=== PATIENT | female | born 1945 | race Two or more races ===

== ENCOUNTER → 2024-11-14 | Outpatient (CLI) | payer MEDICARE, OTHER, SELFPAY ==
--- NOTE | 2024-11-14 14:20 | XR_ITS ---
Examination: Bone densitometry Date and time of exam:November 14, 2024 1442 hours INDICATIONS: Hysterectomy age 45 postmenopausal ankle fracture, personal history osteoporosis Technique: Lumbar spine and hip total bone mineralization values of an calculated. Peak reference and age match control results have been displayed. Findings: Lumbar spine total bone mineralization is0.630 gm/cm2. This is 3.8 standard deviations below peak reference. This is 1.2 standard deviations below age-matched controls. Hip total bone mineralization is 0.257 gm/cm2 This is 5.3 standard deviations below peak reference. This is 3.3 standard deviations below age-matched controls Impression: There is osteoporosis based on lumbar spine measurements. There is osteoporosis based on hip measurements Lumbar mineralization is decreased 12.1% compared with June 03, 2014 Hip mineralization is decreased 46.7% compared with June 03, 2014
== END | disposition home or self-care (01) ==
PROVIDERS: PCP Family Medicine; Referring Provider Family Medicine; Visit Provider Family Medicine
DX: M81.0 Age-related osteoporosis without current pathological fracture (principal)
CPT/HCPCS: 77080

== ENCOUNTER 2025-01-24 11:10 | Day surgery (SDC) | payer MEDICARE, OTHER, SELFPAY ==
[2025-01-24] VITALS (11 sets, daily range): BP systolic 124–154; BP diastolic 47–83; PULSE 61–70; RESP 16–18; TEMP 36.4–36.8; O2SAT 95–100; BMI 21.4
--- NOTE | 2025-01-24 10:22 | EKG_ITS ---
[facility] Test Date: 2025-01-24 Pat Name: MELCHOR HUI Department: Room: - Gender: Female Land Measurer: HARRIS : 1945 Requested By: Colin Retana Order Number: [id number] Reading MD: Colin Retana Measurements Intervals [place] Rate: 63 P: 1 MT: 164 QRS: 55 QRSD: 114 T: 68 QT: 419 QTc: 430 Interpretive Statements SINUS RHYTHM LEFT VENTRICULAR HYPERTROPHY AND ST-T CHANGE [VOLTAGE CRITERIA PLUS ST/T ABNORMALITY] Compared to ECG 03/27/2023 14:20:06 Left ventricular hypertrophy now present ST (T wave) deviation now present /store/S0/[id number]/ecg/[id number].pdf
[2025-01-24 11:17] LABS: Basophils # (Auto) 0.1 Thou/mm3 (0.0-0.2); Basophils % (Auto) 1 % (0-2.5); Eosinophils # (Auto) 0.2 Thou/mm3 (0.0-0.5); Eosinophils % (Auto) 3 % (0-10); Hematocrit 30.7 % (36.0-46.0); Hemoglobin 9.9 g/dL (12.0-16.0); Immature Granulocytes Auto 0.02 Thou/mm3 (0.00-0.00); Lymphocytes # (Auto) 1.1 Thou/mm3 (1.0-4.8); Lymphocytes % (Auto) 19 % (10-50); Mean Corpuscular HGB Conc 32.2 g/dl (31.0-37.0); Mean Corpuscular Hemoglobin 33.0 pg (25.0-35.0); Mean Corpuscular Volume 102 fL (80-100); Monocytes # (Auto) 0.5 Thou/mm3 (0.0-0.8); Monocytes % (Auto) 9 % (0-12); Neutrophils # (Auto) 3.8 Thou/mm3 (1.8-7.7); Neutrophils % (Auto) 68 % (37-80); Nucleated Red Blood Cell # 0.00 Thou/mm3 (0.00-0.00); Nucleated Red Blood Cell % 0 /100 WBC (0); Platelet Count 215 Thou/mm3 (140-440); RDW Standard Deviation 54.5 fL (36.4-46.3); Red Blood Count 3.00 Miln/mm3 (4.00-5.20); White Blood Count 5.6 Thou/mm3 (3.6-11.0)
[2025-01-24 11:23] LABS: Anion Gap 9 (7-16); BUN/Creatinine Ratio 6 Ratio (12-20); Blood Urea Nitrogen 27 mg/dL (9-23); Calcium 9.1 mg/dL (8.3-10.6); Carbon Dioxide 33.5 mMol/L (20.0-31.0); Chloride 98 mMol/L (98-107); Creatinine (Component) 4.9 mg/dL (0.6-1.3); Glucose 98 mg/dL (74-106); Osmolality,Calculated 284 (275-295); Potassium 4.8 mMol/L (3.4-5.1); Sodium 140 mMol/L (136-145); eGFR 9 See Note
[2025-01-24 11:31] LABS: INR 1.1 (0.9-1.3); Partial Thromboplastin Time 36.4 Seconds (22.0-36.0); Prothrombin Time 11.8 Seconds (9.0-12.2)
--- NOTE | 2025-01-24 13:41 | ESOP_ITS ---
Cardiac Cath Procedure Procedure Name Date of procedure: 01/24/25 CHAMBER WORKER: Colin Retana MD PROCEDURE PERFORMED: 1. Left heart and right heart cardiac catheterization including right, left coronary angiograms and left ventriculogram - CPT 10518 2. Ultrasound-guided access of the right radial artery and right femoral vein - CPT 85466 3. Conscious sedation for 30 minutes - CPT 75128 4. Abdominal aortogram 5. Right iliofemoral angiogram Procedure Narrative HISTORY AND INDICATIONS: Mariajose Kenny is a 79-year-old female with a past medical history of severe , moderate MR and TR, mild MS, ESRD previoiusly HD x10 years (M/W/F), ? COPD, hypertension, and open heart surgery with ASD repair, initially presented for evaluation of progressive shortness of breath x5-6 months. Patient had ischemic work up and NST showed abnormal myocardial perfusion study as there is mildly decreased uptake in the inferior and inferior segments with stress suggestive of inducible ischemia. EF 49%. Normal TID and wall motion. Patient was brought in for an elective cardiac catheterization as she also has severe aortic stenosis and will need preoperative workup with left and right heart cardiac catheterization. Discussed with patient risks, benefits and alternatives of per forming left with coronary angiogram including the risks of bleeding, heart rate, stroke and with the procedure. Patient understands the risks and is willing to undergo the procedure. Consent provided for the same. H&P updated and consent was signed prior to the procedure DESCRIPTION OF PROCEDURE: The patient was brought to the cardiac catheterization lab and all asceptic precautions were followed. Patient was given 1 Mg of Versed and 50 mcg of fentanyl for moderate conscious sedation. As the patient was ESRD with HD right femoral artery access was used and 10 mL of lidocaine was given to the right groin. The right femoral artery was accessed with the help of ultrasound as well as micropuncture technique. A 5 Latvian femoral sheath was introduced. A 10 ml of lidocaine was then injected in the right femoral area and right femoral vein vein was accessed with ultrasound guidance and micropuncture technique. A 7 bolivian femoral sheath was used. A 7 Latvian Mckenzie-Jessica catheter wa s used with a Mckenzie wire to direct into the right atrium with inflated balloon. Serial measurements of right atrium, right ventricle, pulmonary artery and pulmonary capillary wedge were taken severely with normal respiration as well as at end expiration as noted below. We then used a 6 Latvian TIG 4 catheter to perform the left and right coronary angiogram as well as a left ventriculogram which showed the following findings. LHC findings: 1. Left main is a large sized artery with severe calcification and bifurcates into the LAD and LCx 2. LAD is a large size artery with moderate to severe calcification with moderate 60 to 70% stenosis of mid LAD at the bifurcation of medium size D2 and is extremely tortuous. Rest of the LAD and diagonal only shows minimal to mild disease. 3. LCx is a large sized artery with moderate calcification, moderate 50% disease in the ostial and proximal LCx and gives rise to medium sized OM1, small OM 2 and OM 3. Medium OM1 with moderate 50% stenosis of the proximal segment and mild disease in distal LCx and OM 2 and OM 3. 4. RCA is a large size artery with severe disease with 100% occlusion in the mid RCA and 95% occlusion in the proximal RCA receiving excellent [id number]-ub-khyuy collaterals up to the distal RCA 5. LVEF is normal at 50 to 55%. LVEDP is mildly elevated at 80 mmHg. 6. There was significant transvalvular aortic gradient with a mean gradient of 33 mmHg with a valve area of 0.54 cm? indicating severe aortic valve stenosis. RHC findings: Mean right atrial pressure was 6 mmHg. Right ventricular pressure was 47/2 mmHg. Pulmonary artery pressure mean pressure was 33 mmHg Mean pulmonary capillary wedge pressure was 23 mmHg. TPG was 10 mmHg. Cardiac output was 3.2 L/min and cardiac index was normal at 2.0 L/min/m? A radial band was used to achieve the hemostasis of the right radial artery access and manual hemostasis for the right antecubital vein. Patient will be monitored in the cardiac oil scout for the next 2 to 3 hours and will be sent to the telemetry floor. Patient recommended to follow-up with me in the office within 7 days after discharge. Complications: None Specimens: None Blood loss: Estimated 5 ml Summary/findings: 1. Severe aortic stenosis: There was significant transvalvular aortic gradient with a mean gradient of 33 mmHg with a valve area of 0.54 cm? indicating severe aortic valve stenosis. 2. LHC showed severe CAD involving the RCA with 100% occluded CREAM MAKER of the mid RCA and proximal 95% stenosis but with excellent [id number] collaterals up to the distal RCA. Severely calcified arteries noted secondary to the ESRD. Left main with mild disease. LAD with moderate 60 to 70% stenosis of the mid LAD at the bifurcation of D2 and is extremely torturous. LCx with moderate 50% stenosis of the proximal LCx as well as the proximal OM1 and rest of the arteries only showed mild disease 3. LVEF normal at 50 to 55%. LVEDP mildly elevated at 18 mmHg. 4. Mild elevated right heart pressures with a mean PA pressure of 33 mmHg, mean PCWP pressure of 23 mmHg and mean pressure of 6 mmHg and mostly secondary to level left heart dysfunction from the elevated LVEDP resulting from the severe aortic stenosis leading to concomitant MR Recommendations: 1. Patient will need further evaluation of her severe aortic stenosis with SAVR versus TAVR and will arrange for cardiothoracic surgery consultation at [facility] along with a CT TAVR study. 2. Recommend aggressive medical management and aggressive risk factor modification of moderate to severe CAD mentioned above with aspirin 81 mg once daily, high intensity statin also beta-ciara if blood pressure permits 3. Patient recommended not to lift more than 5 lbs for the next 7-10 days and follow up with me in my office in 7 days. Colin Retana MD Interventional Cardiology.
[2025-01-28 13:26] LABS: O2 Saturation (Cath Lab) 89 % (91-98); Puncture Site Aortic
[2025-01-28 13:27] LABS: O2 Saturation (Cath Lab) 88 % (91-98); Puncture Site Pulmonary Artery
== END 2025-01-24 18:40 | disposition home or self-care (01) ==
LOC: SCCL 11:18
PROVIDERS: PCP Family Medicine; Referring Provider Internal Medicine Cardiovascular Disease; Visit Provider Internal Medicine Cardiovascular Disease
PROC: (CPT 93460; principal; 2025-01-24 12:00)
DX: I35.0 Nonrheumatic aortic (valve) stenosis (principal); I25.10 Atherosclerotic heart disease of native coronary artery without angina pectoris; I13.11 Hypertensive heart and chronic kidney disease without heart failure, with stage 5 chronic kidney disease, or end stage renal disease; N18.6 End stage renal disease; Z99.2 Dependence on renal dialysis; Z98.890 Other specified postprocedural states; I34.0 Nonrheumatic mitral (valve) insufficiency; I07.1 Rheumatic tricuspid insufficiency; J44.9 Chronic obstructive pulmonary disease, unspecified; I05.0 Rheumatic mitral stenosis; R00.2 Palpitations
CPT/HCPCS: 93460; 36415; 75625; 75710; 80048; 82810; 85025; 85610; 85730; 93005; 99152; 99153; A4649; C1725; C1769; C1894; J0461; J1643; J2250; J2310; J2371; J3010; J3490; Q9967; J2305

== ENCOUNTER 2025-06-07 19:40 | Emergency (ER) | payer MEDICARE, OTHER, SELFPAY ==
--- NOTE | 2025-06-07 19:46 | PC.NURSE ---
DIALYSIS PORT TO LEFT ARM PRESSURE DRESSING APPLIED.
[2025-06-07 20:22] VITALS: BP 167/69; RESP 16; TEMP 36.9; O2SAT 97; BMI 21.3
--- NOTE | 2025-06-07 20:40 | PD.EDADULT ---
ED General RME/HPI General Chief complaint: General Adult/Misc Complain Stated complaint: DIALYSIS PORT BLEEDING Time Seen by Provider: 06/07/25 20:35 Arrival date/time: 06/07/25 19:40 79-year-old female patient with significant history of hypertension, open heart surgery, ESRD, was brought in by family for evaluation regarding bleeding dialysis port. Patient had dialysis today went home, tried to remove the dressing, and patient noticed bleeding severity moderate. Patient tried to do compression dressing. Patient is denying any dizziness, patient told me that she had a blood drawn earlier today and she is not anemic. She probably lost at least 50 cc of blood according to the family. No other complaints noted. She is taking aspirin and Plavix. Related Data Home Medications ?Medication ?Instructions ?Recorded ?Confirmed carvedilol 3.125 mg tablet 3.125 mg PO BID 10/05/21 01/24/25 losartan 50 mg tablet 50 mg PO DAILY 10/05/21 01/24/25 amlodipine 5 mg tablet 5 mg PO QDAY 01/24/25 01/24/25 oxycodone 5 mg capsule 5 mg PO BID PRN pain 01/24/25 01/24/25 Allergies Allergy/AdvReac Type Severity Reaction Status Date / Time NSAIDS (Non-Steroidal Allergy Unknown abd Verified 06/07/25 19:43 Anti-Inflamma bleeding - ulcers aspirin AdvReac Severe ULCER Verified 06/07/25 19:43 ibuprofen AdvReac Severe ULCER Verified 06/07/25 19:43 Review of Systems Review of Systems Narrative Review of Systems: Review of system reviewed and within normal limits except mentioned in HPI ED Exam Narrative Physical exam: VITAL SIGNS: Reviewed. GENERAL APPEARANCE: Alert and interactive, follows commands, no acute distress, HEAD AND FACE: Non-traumatic. ENT: PERRL, pink conjunctivitis, eyelid no trauma, Mucous membrane moist. NECK: Supple, nontender, no nuchal rigidity. CHEST: No tenderness, no crepitus, no paradoxical movement, no retractions. LUNGS: Clear, well ventilated, symmetric, no rales, no wheezing, no ronchi, no stridor, good breath sounds bilaterally. HEART: Regular rate, regular rhythm, no murmur, no gallops. ABDOMEN: Soft, positive bowel sounds, nondistended, no guarding, nontender, no rebound, no masses, RECTAL: Deferred. GENITAL: Deferred. NEUROLOGICAL: Gross motor function intact sensory function intact, Appropriate for age. MUSCULOSKELETAL: low back nontender, full range of motion. EXTREMITIES:+ Bleeding dialysis site, left AV fistula, nontender, full range of motion. SKIN: Color pink, dry, no rash, no lacerations, no abrasions, no contusions. LYMPHATICS: Deferred. Course Quality Measures none Vital Signs Vital signs: Vital Signs Temperature 98.5 F 06/07/25 20:22 Respiratory Rate 16 06/07/25 20:22 Blood Pressure 167/69 H 06/07/25 20:22 Pulse Oximetry (%) 97 06/07/25 20:22 Oxygen Delivery Method Room Air 06/07/25 20:22 Discharge Plan Plan Patient Disposition: HOME (Self Care) Discharge Disposition comment: Stable Prescriptions/Referrals Prescriptions/Med Rec: No Action carvedilol 3.125 mg Tablet 3.125 mg PO BID losartan 50 mg Tablet 50 mg PO DAILY amlodipine 5 mg tablet 5 mg PO QDAY oxycodone 5 mg capsule 5 mg PO BID PRN (Reason: pain) Rx Instructions: per patient has not taken this medication Problem List Clinical Impression: Bleeding from dialysis shunt Patient/Caregiver Discharge Instructions Discharge Activity: activity as tolerated Education Materials: Caring for Your Hemodialysis Access Additional Instructions: Thank you for the opportunity for serving you today. You are stable for discharged . You are advised to: Follow-up with your PCP in 1 to 2 days Return to ED for worsening of symptoms Print Language: Arabic Stand Alone Forms: Susannah Award Info., Patient Portal Info Letter PAUL/KUSH Supervising Physician PAUL/KUSH Supervising Physician: MD Bryan MDM Narrative MDM hospital course (for use when minimal MDM required): 79-year-old female patient with significant history of hypertension, open heart surgery, ESRD, was brought in by family for evaluation regarding bleeding dialysis port. Patient had dialysis today went home, tried to remove the dressing, and patient noticed bleeding severity moderate. Patient tried to do compression dressing. Patient is denying any dizziness, patient told me that she had a blood drawn earlier today and she is not anemic. She probably lost at least 50 cc of blood according to the family. No other complaints noted. She is taking aspirin and Plavix. Compression dressing applied, after 45 minutes, I remove the dressing, and no more bleeding noted patient is stable for discharge home Diagnosis Differential Diagnosis ED Complaint MDM: Bleeding from dialysis shunt, blood coagulopathy, status post hemodialysis Diagnoses ruled out and/or further discussions: Bleeding from hemodialysis cath
== END 2025-06-07 21:40 | disposition home or self-care (01) ==
LOC: SERX 21:54
PROVIDERS: Emergency Provider Emergency Medicine
DX: T82.838A Hemorrhage due to vascular prosthetic devices, implants and grafts, initial encounter (principal); Y84.1 Kidney dialysis as the cause of abnormal reaction of the patient, or of later complication, without mention of misadventure at the time of the procedure
CPT/HCPCS: 99281